=== PATIENT | female | born 1960 | race Caucasian/White ===

== ENCOUNTER 2018-11-30 17:38 | Emergency (ER) | payer SELFPAY ==
[2018-11-30] MEDS ORDERED: Sodium Chloride 0.9% 1,000 ML IV ONE (17:53)
[2018-11-30] MEDS ORDERED: Ondansetron 4 MG/2 ML SDV IVPUSH ONE (17:53)
[2018-11-30] MEDS ORDERED: Ketorolac 30 MG/ML SDV IVPUSH ONE (17:53)
[2018-11-30] MEDS ORDERED: cloNIDine 0.1 MG Tab PO ONE ×2 (18:03→19:53)
--- NOTE | 2018-11-30 18:03 | EDM.PDOC ---
ED HPI GENERAL MEDICAL PROBLEM - General Chief Complaint: Abdominal Pain Stated Complaint: GALLBLADDER PAIN Time Seen by Provider: 11/30/18 17:39 Source of Information: Reports: Patient History Limitations: Reports: Language Barrier - History of Present Illness INITIAL COMMENTS - FREE TEXT/NARRATIVE: HISTORY AND PHYSICAL: History of present illness: Patient is a 58-year-old female presents to the ED today for concern of right upper quadrant pain after eating greasy [place] food today. Patient states she is from [place] and is not used to the [place] food. Patient states in the past she's had similar pain that comes and goes and was told it was her gallbladder. Patient states after eating the [place] food today she is noticed this pain reoccur and rates it a 9 out of 10 in the right upper quadrant and worse when she presses on her abdomen. Patient states that she had one episode of vomiting that was green in color just prior to arrival to the ED. Patient states her symptoms all started about 2-3 hours ago. Patient denies any other symptoms or concerns at this time. She states she has a history of tubal ligation but denies any other abdominal surgeries. Patient states she also has a history of high blood pressure does not remember from the medication or ever taken medication for it. Patient denies fever, chills, chest pain, shortness of breath, or cough. Denies headache, neck stiff ness, change in vision, syncope, or near syncope. Denies abdominal pain, diarrhea, constipation, or dysuria. Has not noted any blood in urine or stool. Patient has been eating and drinking appropriately prior to onset of symptoms. Review of systems: As per history of present illness and below otherwise all systems reviewed and negative. Past medical history: As per history of present illness and as reviewed below otherwise noncontributory. Surgical history: As per history of present illness and as reviewed below otherwise noncontributory. Social history: See social history for further information Family history: As per history of present illness and as reviewed below otherwise noncontributory. Physical exam: General: Patient is alert, oriented, and in no acute distress. Patient sitting comfortably on exam table. HEENT: Atraumatic, normocephalic, pupils equal and reactive bilaterally, negative for conjunctival pallor or scleral icterus, mucous membranes moist, TMs normal bilaterally, throat clear, neck supple, nontender, trachea midline. No drooling or trismus noted. No meningeal signs. No hot potato voice noted. Lungs: Clear to auscultation, breath sounds equal bilaterally, chest nontender. Heart: S1S2, regular rate and rhythm without overt murmur Abdomen: Obese, Soft, nondistended. Severe pain to palpation of the right upper quadrant with guarding. Positive Oliveira sign. Negative for masses or hepatosplenomegaly. Negative for costovertebral tenderness. Pelvis: Stable nontender. Genitourinary: Deferred. Rectal: Deferred. Skin: Intact, warm, dry. No lesions or rashes noted. Extremities: Atraumatic, negative for cords or calf pain. Neurovascular unremarkable. Neuro: Awake, alert, oriented. Cranial nerves II through XII unremarkable. Cerebellum unremarkable. Motor and sensory unremarkable throughout. Exam nonfocal. Notes: Dr. Stuart consulted on patient and per his recommendations patient to take levofloxacin for 5-7 days as well as give enough narcotic medication until she can be seen in his office on Tuesday. Discussed this with patient and she voices understanding and is agreeable to plan of care. Denies any further questions or concerns at this time. Diagnostics: CBC, CMP, UA, lipase, troponin, EKG, right upper quadrant ultrasound Therapeutics: Saline, Toradol, Zofran, Clonidine, Dilaudid Prescription: [facility] #30, Levofloxacin Impression: Acute cholecystitis Hypertension Plan: 1. Take medication as prescribed. 2. Follow-up with Dr. Stuart on Tuesday. His information and phone number provided above for you. Call the clinic tomorrow to ensure this appointment is set up. 3. Return to the ED as needed and as discussed. Definitive disposition and diagnosis as appropriate pending reevaluation and review of above. abd Pain Score (Numeric/FACES): 8 - Related Data Allergies Allergy/AdvReac Type Severity Reaction Status Date / Time No Known Allergies Allergy Verified 11/30/18 17:47 Home Meds: Home Meds . [No Known Home Meds] 11/30/18 [History] Past Medical History - Past Health History Medical/Surgical History: Denies Medical/Surgical History [employer] History: Reports: Spontaneous - Infectious Disease History Infectious Disease History: Reports: Measles Social & Family History - Family History Family Medical History: Noncontributory - Tobacco Use Smoking Status *Q: Never Smoker - Recreational Drug Use Recreational Drug Use: No ED ROS GENERAL - Review of Systems Review Of Systems: ROS reveals no pertinent complaints other than HPI. ED EXAM, GI/ABD - Physical Exam Exam: See Below (See dictation) Course - Vital Signs Last Recorded V/S: Last Vital Signs Temp 35.4 C 11/30/18 17:47 Pulse 71 11/30/18 21:37 Resp 18 11/30/18 21:37 BP 184/86 H 11/30/18 21:37 Pulse Ox 94 L 11/30/18 21:37 - Orders/Labs/Meds Orders: Active Orders 24 hr Category Date Time Status EKG Documentation Completion [RC] STAT Care 11/30/18 17:54 Active Labs: Laboratory Tests 11/30/18 11/30/18 11/30/18 Range/Units 18:07 18:07 18:20 WBC 10.35 (4.0-11.0) K/uL RBC 5.37 (4.30-5.90) M/uL Hgb 15.7 (12.0-16.0) g/dL Hct 47.1 H (36.0-46.0) % MCV 87.7 (80.0-98.0) fL MCH 29.2 (27.0-32.0) pg MCHC 33.3 (31.0-37.0) g/dL RDW Std Deviation 44.2 (28.0-62.0) fl RDW Coeff of Moiz 14 (11.0-15.0) % Plt Count 219 (150-400) K/uL MPV 10.60 (7.40-12.00) fL Neut % (Auto) 73.2 (48.0-80.0) % Lymph % (Auto) 19.4 (16.0-40.0) % Nobles % (Auto) 6.1 (0.0-15.0) % Eos % (Auto) 1.0 (0.0-7.0) % Baso % (Auto) 0.3 (0.0-1.5) % Neut # (Auto) 7.6 H (1.4-5.7) K/uL Lymph # (Auto) 2.0 (0.6-2.4) K/uL Nobles # (Auto) 0.6 (0.0-0.8) K/uL Eos # (Auto) 0.1 (0.0-0.7) K/uL Baso # (Auto) 0.0 (0.0-0.1) K/uL Nucleated RBC % 0.0 /100WBC Nucleated RBCs # 0 K/uL Sodium 140 (136-145) mmol/L Potassium 3.3 L (3.5-5.1) mmol/L Chloride 106 (98-107) mmol/L Carbon Dioxide 26.6 (21.0-32.0) mmol/L BUN 23 H (7.0-18.0) mg/dL Creatinine 1.0 (0.6-1.0) mg/dL Est Cr Clr Drug Dosing 53.75 mL/min Estimated GFR (MDRD) 56.6 ml/min Glucose 153 H (74-106) mg/dL Calcium 8.7 (8.5-10.1) mg/dL Total Bilirubin 0.3 (0.2-1.0) mg/dL AST 14 L (15-37) IU/L ALT 18 (14-63) IU/L Alkaline Phosphatase 118 H (46-116) U/L Troponin I < 0.050 (0.000-0.056) ng/mL Total Protein 7.3 (6.4-8.2) g/dL Albumin 3.7 (3.4-5.0) g/dL Globulin 3.6 (2.6-4.0) g/dL Albumin/Globulin Ratio 1.0 (0.9-1.6) Lipase 93 (73-393) U/L Urine Color YELLOW Urine Appearance CLEAR Urine pH 7.0 (5.0-8.0) Ur Specific [place] 1.020 (1.001-1.035) Urine Protein TRACE H (NEGATIVE) mg/dL Urine Glucose (UA) NEGATIVE (NEGATIVE) mg/dL Urine Ketones NEGATIVE (NEGATIVE) mg/dL Urine Occult Blood SMALL H (NEGATIVE) Urine Nitrite NEGATIVE (NEGATIVE) Urine Bilirubin NEGATIVE (NEGATIVE) Urine Urobilinogen 0.2 (<2.0) EU/dL Ur Leukocyte Esterase NEGATIVE (NEGATIVE) Urine RBC 2-3 (0-2/HPF) Urine WBC 1-2 (0-5/HPF) Ur Epithelial Cells OCCASIONAL (NONE-FEW) Urine Bacteria FEW (NEGATIVE) Meds: Medications Discontinued Medications Generic Name Dose Route Start Last Admin Trade Name Freq PRN Reason Stop Dose Admin Clonidine HCl 0.1 mg 11/30/18 18:03 11/30/18 19:08 Catapres PO 11/30/18 18:04 Not Given ONETIME ONE Clonidine HCl 0.1 mg 11/30/18 19:53 11/30/18 19:58 Catapres PO 11/30/18 19:54 0.1 mg ONETIME ONE Administration Hydromorphone HCl 1 mg 11/30/18 20:59 11/30/18 21:12 Dilaudid IVPUSH 11/30/18 21:00 1 mg ONETIME ONE Administration Hydromorphone HCl Confirm 11/30/18 21:08 11/30/18 21:13 Dilaudid Administered 11/30/18 21:09 Not Given Dose 1 mg .ROUTE .STK-MED ONE Sodium Chloride 1,000 mls @ 999 mls/hr 11/30/18 17:53 11/30/18 18:21 Normal Saline IV 11/30/18 18:53 999 mls/hr BOLUS ONE Administration Ketorolac Tromethamine 30 mg 11/30/18 17:53 11/30/18 18:24 Toradol IVPUSH 11/30/18 17:54 30 mg ONETIME ONE Administration Ondansetron HCl 4 mg 11/30/18 17:53 11/30/18 18:23 Zofran IVPUSH 11/30/18 17:54 4 mg ONETIME ONE Administration Departure - Departure Time of Disposition: 21:57 Disposition: Home, Self-Care 01 Clinical Impression: Acute cholecystitis Hypertension Qualifiers: Hypertension type: unspecified Qualified Code(s): I10 - Essential (primary) hypertension - Discharge Information Referrals: PCP,None [Primary Care Provider] - Forms: ED Department Discharge Additional Instructions: The following information is given to patients seen in the emergency department who are being discharged to home. This information is to outline your options for follow-up care. We provide all patients seen in our emergency department with a follow-up referral. The need for follow-up, as well as the timing and circumstances, are variable depending upon the specifics of your emergency department visit. If you don't have a primary care physician on staff, we will provide you with a referral. We always advise you to contact your personal physician following an emergency department visit to inform them of the circumstance of the visit and for follow-up with them and/or the need for any referrals to a consulting specialist. The emergency department will also refer you to a specialist when appropriate. This referral assures that you have the opportunity for follow-up care with a specialist. All of these measure are taken in an effort to provide you with optimal care, which includes your follow-up. Under all circumstances we always encourage you to contact your private physician who remains a resource for coordinating your care. When calling for follow-up care, please make the office aware that this follow-up is from your recent emergency room visit. If for any reason you are refused follow-up, please contact the [facility] Emergency Department at and asked to speak to the emergency department charge nurse. [facility] [address] [place] [address] [id number] [address] [facility] - General Surgery, Dr. Yadiel Stuart Professional Building [address] [place] [address], [address] [place] [address] 1. Take medication as prescribed. 2. Follow-up with Dr. Stuart on Tuesday. His information and phone number provided above for you. Call the clinic tomorrow to ensure this appointment is set up. 3. Return to the ED as needed and as discussed. - My Orders Last 24 Hours: My Active Orders 11/30/18 17:54 EKG Documentation Completion [RC] STAT - Assessment/Plan Last 24 Hours: My Active Orders 11/30/18 17:54 EKG Documentation Completion [RC] STAT
[2018-11-30 18:41] LABS: CHLORIDE,CL 106 mmol/L (98-107); SODIUM,NA 140 mmol/L (136-145)
--- NOTE | 2018-11-30 19:53 | US ---
INDICATION: Abdominal pain TECHNIQUE: Ultrasound abdomen limited. Sonographic images of the right upper quadrant were obtained using mc-scale and color Doppler images. COMPARISON: None FINDINGS: Liver: Mild fatty infiltration of the liver is noted. Gallbladder: Gallstones are present with the largest measuring 1.5 cm. The gallbladder wall is near the upper limits of normal measuring 3 mm and has mild edema seen. No pericholecystic fluid is present. A sonographic Oliveira sign reported. Common bile duct: 3 mm. No intrahepatic biliary ductal dilatation seen. Pancreas: The visualized portions of the pancreatic head and body are normal in appearance. Right Kidney: 11.2 cm. No hydronephrosis or ureterectasis is seen. Vascular: Proximal abdominal aorta and IVC are normal in caliber. The visualized portal vein is patent with normal anterograde flow. IMPRESSION: 1. Several gallstones are present with mild gallbladder wall edema and sonographic Oliveira`s sign. These findings are suspicious for acute cholecystitis. Dictated by Boris Mercedes MD @ 11/30/2018 7:43:01 PM Dictated by: Boris Mercedes MD @ 11/30/2018 19:53:04 (Electronically Signed)
[2018-11-30] MEDS ORDERED: HYDROmorphone 2 MG/ML SDV IVPUSH ONE (20:59)
[2018-11-30] MEDS ORDERED: HYDROmorphone 1 MG/ML Syringe ONE (21:08)
== END 2018-11-30 22:17 | disposition home or self-care (01) ==
LOC: EDBD 17:38 → MW.ED 17:38
DX: K81.0 Acute cholecystitis (principal); I10 Essential (primary) hypertension
CPT/HCPCS: 36415; 76705; 80053; 81001; 83690; 84484; 85025; 93005; 96361; 96374; 96375; 99284; A9270; J1170; J1885; J2405; J7040